=== PATIENT | male | born 1955 | race Caucasian/White ===

== ENCOUNTER 2019-10-04 14:47 | Outpatient (CLI) | payer BC, SELFPAY ==
--- NOTE | ~2019-10-04 | XR_ITS ---
XR_[id number]_CR 10/04/2019 15:04 Indication: Radiculopathy. Cervical region. Procedure: 3 views cervical spine Comparison: No prior studies for comparison. Findings: Straightening of cervical lordosis. There is disc narrowing and endplate degenerative celaya e at C5-6 and C6-7. There are advanced multilevel facet and uncinate degenerative changes. There is h ealed right clavicular fracture. No prevertebral soft tissue swelling. Odontoid process is unremarkab le. Lung apices are normal. Impression: 1: Severe cervical spondylosis. Reviewed, dictated and finalized at location A. ICULTURAL FARMWORKER Impression: 1: Severe cervical spondylosis.
== END 2019-10-04 14:48 | disposition home or self-care (01) ==
LOC: ANHIMG 14:48
PROVIDERS: PCP Internal Medicine; Visit Provider Nurse Practitioner
DX: M47.22 Other spondylosis with radiculopathy, cervical region (principal)
CPT/HCPCS: 72040

== ENCOUNTER 2019-10-15 12:24 | Outpatient (CLI) | payer BC, SELFPAY ==
--- NOTE | ~2019-10-15 | MR_ITS ---
EXAMINATION: MR cervical spine wo con DATE: 10/15/2019 13:08 INDICATION: Cervical radiculopathy TECHNIQUE: Magnetic resonance imaging (MRI) of the cervical spine was performed without intravenous c ontrast. Sequences included sagittal T2-weighted FSE, sagittal T2-weighted FS FSE, sagittal T1-weight ed FSE, axial MERGE and axial T2-weighted FSE. COMPARISON: Cervical spine radiographs dated 10/04/2019 FINDINGS: Straightening of the normal cervical lordosis and mild cervical dextrocurvature. Vertebral body heig hts are normal. Bone marrow signal intensity is normal. No fracture or pathologic marrow replacing p rocess. Severe disc height loss at C6-C7. Mild disc height loss at C4-C5 and C5-C6. There is a small focus of increased cord signal associated cord expansion at the left side of the cord at the level of C3. There is flattening of the cord at this level and throughout much of the cervical spine resultin g from degenerative disc disease and stenosis which would be further detailed below. Cervical soft ti ssues are unremarkable. The following disc levels are specifically discussed: C2-C3: Disc is bulging. There is mild right uncovertebral joint osteoarthritis. There is severe bilat eral, left greater than right facet joint osteoarthritis. There is mild bilateral neural foraminal st enosis. There is moderate to severe central canal stenosis measuring 5 mm AP in the mid sagittal plan e. C3-C4: Posterior disc osteophyte complex. There is moderate bilateral uncovertebral joint osteoarthri tis. There is severe bilateral facet joint osteoarthritis. There is moderate left and moderate to sev ere right neural foraminal stenosis. There is mild to moderate central canal stenosis measuring 7-8 m m AP in the mid sagittal plane. C4-C5: Disc is bulging. There is moderate left and mild to moderate right uncovertebral joint osteoar thritis. There is moderate right and severe left facet joint osteoarthritis. There is moderate to sev ere bilateral neural foraminal stenosis. There is mild to moderate central canal stenosis measuring 7 -8 mm AP in the mid sagittal plane. C5-C6: Disc is bulging with small amount of ossification along the posterior longitudinal ligament. T here is moderate right and severe left uncovertebral joint osteoarthritis. There is moderate right an d severe left facet joint osteoarthritis. There is moderate right and moderate to severe left neural foraminal stenosis. There is mild central canal stenosis measuring 9 mm AP in the mid sagittal plane. C6-C7: Posterior disc osteophyte complex. There is severe bilateral uncovertebral joint osteoarthriti s. There is mild right and moderate left facet joint osteoarthritis. There is moderate to severe left and severe right neural foraminal stenosis. There is mild to moderate central canal stenosis measuri ng 7-8 mm AP in the mid sagittal plane. C7-T1: Annular fissure with small central to left foraminal zone disc extrusion. There is mild left u ncovertebral joint osteoarthritis. There is moderate bilateral facet joint osteoarthritis. There is m ild to moderate left neural foraminal stenosis. There is mild central canal stenosis measuring 10-11 mm AP in the mid sagittal plane. IMPRESSION: 1. Severe cervical spondylosis most notable for moderate to severe central canal stenosis at C2-C3 me asuring 4-5 mm AP in the mid sagittal plane. 2. 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 Reviewed, dictated and finalized at location A. RINARY RECEPTIONIST IMPRESSION: 1. Severe cervical spondylosis most notable for moderate to severe central kecia
== END 2019-10-15 12:25 | disposition home or self-care (01) ==
PROVIDERS: PCP Internal Medicine; Visit Provider Nurse Practitioner
DX: M47.22 Other spondylosis with radiculopathy, cervical region (principal)
CPT/HCPCS: 72141

== ENCOUNTER 2020-04-18 08:51 | Outpatient (CLI) | payer BC, SELFPAY ==
--- NOTE | ~2020-04-18 | MR_ITS ---
EXAMINATION: MR lumbar spine wo con DATE: 04/18/2020 09:59 INDICATION: Lumbar spondylosis with radiculopathy. TECHNIQUE: Magnetic resonance imaging (MRI) of the lumbar spine was performed without intravenous con trast. Sequences included sagittal T2-weighted FSE, sagittal T2-weighted FS FSE, sagittal T1-weighted FSE, and axial T2-weighted FSE. COMPARISON: None FINDINGS: There is 12 degrees dextroscoliosis of lumbar spine. There is 3 mm retrolisthesis of L3 on L4. There is mild chronic anterior wedging of T12-L2 vertebral bodies. There are Schmorl's nodes from T11-T12 through L3-L4. There is mildly decreased disc height at T12-L1 and L1-L2 and severely decrea sed disc height at L3-L4. The distal spinal cord signal intensity is normal. The conus medullaris is at L1. There is Baastrup disease at L4-L5 with 14 mm and 10 mm ganglion cysts adjacent to the spinous processes. The following disc levels are specifically discussed: L1-L2: The disc is mildly bulging. There is mild bilateral facet joint osteoarthritis. There is mild right neural foraminal stenosis. There is mild central canal stenosis. L2-L3: The disc is bulging. There is mild bilateral facet joint osteoarthritis. There is mild bilater al neural foraminal stenosis. There is mild central canal stenosis. L3-L4: The disc is bulging. There is mild right and moderate left facet joint osteoarthritis. There i s moderate bilateral neural foraminal stenosis. There is mild central canal stenosis. L4-L5: The disc is bulging and has an annular fissure. There is severe bilateral facet joint osteoart hritis. There is moderate bilateral neural foraminal stenosis. There is mild central canal stenosis. L5-S1: The disc is bulging. There is severe bilateral facet joint osteoarthritis. There is mild bilat eral neural foraminal stenosis. There is no central canal stenosis. IMPRESSION: 1. Severe lumbar spondylosis. 2. Lumbar dextroscoliosis. Reviewed, dictated and finalized at location A.
== END 2020-04-18 08:52 | disposition home or self-care (01) ==
LOC: ANHIMG 08:54
PROVIDERS: PCP Internal Medicine; Visit Provider Neurological Surgery
DX: M47.26 Other spondylosis with radiculopathy, lumbar region (principal)
CPT/HCPCS: 72148

== ENCOUNTER 2020-06-25 08:02 | Outpatient (CLI) | payer BC, SELFPAY ==
[2020-06-25 08:40] LABS: Basophils Percent Auto 0.6 % (0.2-1.2); Eosinophils Absolute Auto 0.1 K/mm3 (0-0.3); Eosinophils Percent Auto 1.5 % (0-4.4); Hematocrit 42.7 % (42.0-52.0); Hemoglobin 14.5 g/dL (14.0-18.0); Immature Granulocyte Absolute 0.23 K/mm3 (0.00-0.031); Immature Granulocyte Percent A 3.5 % (0-0.5); Lymphocytes Absolute Auto 1.22 K/mm3 (0.9-3.2); Lymphocytes Percent Auto 18.3 % (18.3-44.2); Mean Corpuscular Volume 91.4 fl (80-100); Monocytes Absolute Auto 0.5 K/mm3 (0.1-0.6); Monocytes Percent Auto 7.7 % (2.6-8.5); Neutrophils Absolute Auto 4.6 K/mm3 (1.3-6.7); Neutrophils Percent Auto 68.4 % (45.5-73.1); Platelet Count Result 185 k/mm3 (150-375); Red Blood Count 4.67 M/mm3 (4.6-6.20); Red Cell Distribution Width 11.8 % (11.5-14.5); White Blood Count 6.7 K/mm3 (4.5-10.0)
[2020-06-25 09:25] LABS: Alanine Aminotransferase 26 U/L (4-50); Albumin Level 4.6 g/dL (3.5-5.1); Alkaline Phosphatase 71 U/L (38-126); Anion Gap 9 mmol/L (8-16); Aspartate Amino Transferase 25 U/L (17-59); Bilirubin,Total 0.9 mg/dL (0.2-1.3); Blood Urea Nitrogen 26 mg/dL (9-20); Calcium 9.7 mg/dL (8.4-10.2); Carbon Dioxide 28 mmol/L (22-30); Chloride 100 mmol/L (98-107); Cholesterol 216 mg/dL (0-200); Estimated Glomerular Filt Rate > 60; Glucose 105 mg/dL (75-110); HDL Direct 48 mg/dL; Potassium 4.4 mmol/L (3.4-5.0); Sodium 137 mmol/L (137-145); Triglycerides 324 mg/dL (<150)
[2020-06-25 09:48] LABS: LDL Cholesterol Direct 111 mg/dL
[2020-06-27 08:01] LABS: Amphetamines negative; Barbiturates negative; Benzodiazepines negative; Cocaine Metabolites negative; Marijuana Metabolites negative; PCP negative
== END 2020-06-25 08:03 | disposition home or self-care (01) ==
PROVIDERS: PCP Internal Medicine; Visit Provider Clinical Nurse Specialist
DX: Z12.5 Encounter for screening for malignant neoplasm of prostate (principal); I10 Essential (primary) hypertension; Z79.899 Other long term (current) drug therapy
CPT/HCPCS: 36415; 80053; 80061; 80307; 84153; 85025; G0103

== ENCOUNTER 2020-11-13 08:32 | Outpatient (CLI) | payer BC, SELFPAY ==
[2020-11-13 09:09] LABS: Cholesterol 199 mg/dL (0-200); HDL Direct 45 mg/dL; Triglycerides 315 mg/dL (<150)
[2020-11-13 09:20] LABS: LDL Cholesterol Direct 97 mg/dL
== END 2020-11-13 08:33 | disposition home or self-care (01) ==
PROVIDERS: PCP Internal Medicine; Visit Provider Clinical Nurse Specialist
DX: E78.5 Hyperlipidemia, unspecified (principal)
CPT/HCPCS: 36415; 80061

== ENCOUNTER 2022-03-03 10:13 | Outpatient (CLI) | payer MEDICARE, SELFPAY ==
--- NOTE | ~2022-03-03 | MR_ITS ---
EXAMINATION: MR lumbar spine wo con DATE: 03/03/2022 11:06 INDICATION: Lumbar radiculopathy. TECHNIQUE: Magnetic resonance imaging (MRI) of the lumbar spine was performed without intravenous con trast. Sequences included sagittal T2-weighted FSE, sagittal T2-weighted FS FSE, sagittal T1-weighted FSE, and axial T2-weighted FSE. COMPARISON: Lumbar spine MRI 04/18/2020 FINDINGS: There is 10 degrees dextroscoliosis of lumbar spine. There is 12 degrees levoscoliosis of t horacolumbar spine. There is 3 mm retrolisthesis of L3 on L4. Vertebral body heights are normal. Ther e is mildly decreased disc height at L1-L2 and moderately decreased disc height at L3-L4. There is Ba astrup disease at L4-L5. The distal spinal cord signal intensity is normal. The conus medullaris is a t L1. The following disc levels are specifically discussed: L1-L2: The disc is bulging. There is mild bilateral facet joint osteoarthritis. There is mild right n eural foraminal stenosis. There is mild central canal stenosis. L2-L3: The disc is bulging. There is mild bilateral facet joint osteoarthritis. There is mild bilater al neural foraminal stenosis. There is mild central canal stenosis. L3-L4: The disc is bulging and has an annular fissure. There is mild right and moderate left facet janine int osteoarthritis. There is hypertrophy of the ligamentum flavum. There is moderate bilateral neural foraminal stenosis. There is mild central canal stenosis. There is moderate stenosis of left lateral recess. L4-L5: The disc is bulging. There is severe bilateral facet joint osteoarthritis. There is a 9 mm syn ovial cyst from left facet joint. There is hypertrophy of the ligamentum flavum. There is moderate bi lateral neural foraminal stenosis. There is moderate central canal stenosis. There is severe stenosis of left lateral recess. L5-S1: The disc is bulging. There is severe bilateral facet joint osteoarthritis. There is mild bilat eral neural foraminal stenosis. There is no central canal stenosis. IMPRESSION: 1. Moderate lumbar spondylosis with interval worsening at L4-L5. Reviewed, dictated and finalized at location A.
== END 2022-03-03 10:14 | disposition home or self-care (01) ==
PROVIDERS: PCP Internal Medicine; Visit Provider Neurological Surgery
DX: M47.26 Other spondylosis with radiculopathy, lumbar region (principal); M46.1 Sacroiliitis, not elsewhere classified
CPT/HCPCS: 72148

== ENCOUNTER 2024-07-17 00:26 | Day surgery (SDC) | payer MEDICARE, SELFPAY ==
[2024-06-26 14:46] VITALS: BMI 30.2
[2024-07-17 06:57] VITALS: BP 149/84; PULSE 117; RESP 16; TEMP 36.6; O2SAT 99; BMI 29.2
[2024-07-17] MEDS: LACTATED RINGERS 1,000 ML 150 ML IV CONT (07:04)
--- NOTE | 2024-07-17 07:33 | P.PNAN_ITS ---
Anes - Initial Pre Proc Eval Procedure: Operation Date: 07/17/24 08:00 Proposed Procedures p Colonoscopy - Dylon Pena MD Date/Time: 07/17/24 07:33 Surgeon: Dylon Pena MD Pre Op Diagnosis: Personal hx. colon polyps Patient Data Age: 69 Gender: M Height: 1.83 m Weight: 97.6 kg Last Vital Signs Temp 36.6 C 07/17/24 06:57 Pulse 117 H 07/17/24 06:57 Resp 16 07/17/24 06:57 BP 149/84 H 07/17/24 06:57 Pulse Ox 99 07/17/24 06:57 O2 Del Method Room Air 07/17/24 06:57 Allergies Allergy/AdvReac Type Severity Reaction Status Date / Time No Known Allergies Allergy Verified 07/17/24 06:53 Home Medications Medication Instructions Recorded Confirmed Type testosterone cypionate 100 mg/mL 500 mg IM WEEKLY 03/11/22 07/17/24 History intramuscular oil losartan 50 mg tablet See Rx Instructions .Route 04/03/24 07/17/24 Rx .COMPLEX #135 tabs simvastatin 40 mg tablet See Rx Instructions .Route 04/03/24 07/17/24 Rx .COMPLEX #90 tabs zolpidem 10 mg tablet (Ambien) 10 mg PO QHS PRN insomnia #30 tabs 05/22/24 07/17/24 Rx omega-3 fatty acids 300 mg capsule 1,500 mg PO DAILY 07/17/24 07/17/24 History Patient hx anesthesia problems: none Family hx anesthesia problems: none Results Review: All pre-operative results and documents have been reviewed as part of the pre- operative evaluation. [facility] Past Medical History Medical History Essential (primary) hypertension HLD (hyperlipidemia) Primary insomnia Surgical History Surgical History History of back surgery (~04/2022) Family History Family History Mother Patient's mother is in good health Social History Social History Social History: Caffeine-coffee Smoking status: Never smoker Smoking end date: 08/16/83 Alcohol intake: never Substance use: never Substance use type: does not use Lack of Transportation: No Lack of Food: Never True Current Housing: I Have Housing Concerned About Future Housing: No Difficulty Paying Gas/Electric Bills: No Difficulty Paying for Meds: No Currently Unemployed: No Education: High School Diploma/GED Difficulty w/ Childcare or Family Care: No Living arrangements: with family Additional living arrangements comments: with aleah Knapp Final PreProcedure Day of Procedure 07/17/24 07:33 Patient weight: overweight Heart: regular rate and rhythm Lungs: clear to auscultation Airway: Mallampati scale class II Neurological: alert and oriented Last oral intake: >/= 8 hours ASA classification: III Emergent: no Anesthetic plan: proceed Anesthesia type and monitoring: general GIVS and standard monitoring Results Review: All pre-operative results and documents have been reviewed as part of the pre- operative evaluation. Informed Consent: The patient's anesthetic plan and its attendant risks and benefits were discusse d with the patient/family/POA. Questions were solicited and answers provided to the satisfaction of the patient/family/POA.
--- NOTE | 2024-07-17 07:56 | PM.HPGS ---
History of Present Illness History of Present Illness Consent: Risks, benefits, and alternatives have been discussed and questions answered. Patient agrees to proceed with procedure. Chief complaint: Personal hx. colon polyps Narrative: Devan Garcia is a 69 year old male with h/o colon polyp Review of Systems Review of Systems: All systems reviewed & are unremarkable except as noted in HPI and below PMFSH Past Medical History Medical History Essential (primary) hypertension HLD (hyperlipidemia) Primary insomnia Surgical History Surgical History History of back surgery (~04/2022) Family History Family History Mother Patient's mother is in good health Social History Social History Social History: Caffeine-coffee Smoking status: Never smoker Smoking end date: 08/16/83 Alcohol intake: never Substance use: never Substance use type: does not use Lack of Transportation: No Lack of Food: Never True Current Housing: I Have Housing Concerned About Future Housing: No Difficulty Paying Gas/Electric Bills: No Difficulty Paying for Meds: No Currently Unemployed: No Education: High School Diploma/GED Difficulty w/ Childcare or Family Care: No Living arrangements: with family Additional living arrangements comments: with sp Meds Home Medications and Allergies Home Medications Medication Instructions Recorded Confirmed Type testosterone cypionate 100 mg/mL 500 mg IM WEEKLY 03/11/22 07/17/24 History intramuscular oil losartan 50 mg tablet See Rx Instructions .Route 04/03/24 07/17/24 Rx .COMPLEX #135 tabs simvastatin 40 mg tablet See Rx Instructions .Route 04/03/24 07/17/24 Rx .COMPLEX #90 tabs zolpidem 10 mg tablet (Ambien) 10 mg PO QHS PRN insomnia #30 tabs 05/22/24 07/17/24 Rx omega-3 fatty acids 300 mg capsule 1,500 mg PO DAILY 07/17/24 07/17/24 History Allergies Allergy/AdvReac Type Severity Reaction Status Date / Time No Known Allergies Allergy Verified 07/17/24 06:53 Vital Signs Vital Signs - 24 hr 07/17/24 06:57 Temperature 97.9 F Pulse Rate 117 H Respiratory Rate 16 Blood Pressure 149/84 H Pulse Oximetry 99 Oxygen Delivery Room Air Exam Const: General: comfortable and no acute distress HENMT: Face/Nose/Sinus: Normal nares present Eyes: General: appearance normal, both eyes and all related structures Neck: Neck: no JVD Resp: Auscultation: clear to auscultation bilaterally Cardio: Rate: regular rate Rhythm: regular rhythm GI: Inspection: non-distended GI Palp: Yes Soft to palpation Skin: General skin exam: normal color Neuro: General: gait normal Speech: normal speech Extrem: General: normal to inspection Psych: Mental Status: mental status grossly normal Assessment and Plan Assessment and plan (1) Personal history of colonic polyps: Code(s): Z86.010 - Personal history of colon polyps Status: Acute Assessment and Plan: colonoscopy
[2024-07-17 08:19] VITALS: BP 108/71; PULSE 97; RESP 23; O2SAT 95
[2024-07-17 08:29] VITALS: BP 123/82; PULSE 91; RESP 19; O2SAT 99
[2024-07-17 08:39] VITALS: BP 130/90; PULSE 90; RESP 20; O2SAT 97
== END 2024-07-17 08:43 | disposition home or self-care (01) ==
PROVIDERS: PCP Internal Medicine; Referring Provider Nurse Practitioner; Visit Provider Internal Medicine Gastroenterology
PROC: 0DJD8ZZ Inspection of Lower Intestinal Tract, Via Natural or Artificial Opening Endoscopic (ICD-10-PCS; CPT 45378; principal; 2024-07-17 08:00)
DX: Z12.11 Encounter for screening for malignant neoplasm of colon (principal); D12.0 Benign neoplasm of cecum; D12.2 Benign neoplasm of ascending colon; D12.3 Benign neoplasm of transverse colon; K63.5 Polyp of colon; K63.89 Other specified diseases of intestine; K64.8 Other hemorrhoids; I10 Essential (primary) hypertension; E78.5 Hyperlipidemia, unspecified; F51.01 Primary insomnia
CPT/HCPCS: 45385; 88305; J2704; J7120